=== PATIENT | male | born 1955 | race Caucasian/White ===

== ENCOUNTER 2018-06-14 20:21 | Inpatient (IN) | payer OTHER ==
[~2018-06-14] VITALS: Ht 172.7 cm; Wt 80.4 kg
--- NOTE | ~2018-06-14 | CON ---
[place], [place] REPORT OF CONSULTATION NAME: IRWIN BOYLE UNIT #: [id number] ROOM: 411 DOCTOR: PHD SHAISTA ESPINALHERINE BIRTHDATE: [birth year] DOS: 06/20/2018 HISTORY OF PRESENT ILLNESS: The patient is a 62-year-old male with a history of dementia, referred by the hospitalist due to recent change in mental status. He has been wandering lately and is currently nonverbal. He is presently on the 4th floor of [facility]. The patient is a poor historian. The patient is a poor historian. Per his medical records, he is a former smoker and does not use alcohol or illegal drugs. PAST MEDICAL HISTORY: Anxiety, asthma, Brennan esophagus, chronic back pain, COPD, dementia, gastritis, GERD, hiatal hernia, hyperlipidemia, IBS. MEDICATIONS: Potassium Cl/D5W, Namenda, Exelon, Remeron, Zocor, Eskalith, Risperdal, vitamin D, Singulair, Lovenox, Atrovent inhaler, Zofran, albuterol, Ritalin. The patient was awake and lying, in bed in no apparent distress. He made eye contact occasionally, but could not respond verbally to questions. He could not follow 1-step commands such as copying hand movements, following a pen with his eyes or blinking on command. DIAGNOSES: Unspecified neurocognitive disorder, unspecified delirium. PLAN: Continue to monitor to determine appropriateness for the [facility] once medically cleared. Thank you very much for this consult. Marian Espinal, PhD CM:CONSTR:REPORT OF CONSULTATION 1037 06/20/18 1811 interface
--- NOTE | ~2018-06-14 | EKG ---
[place], [place] ELECTROCARDIOGRAM REPORT NAME: IRWIN BOYLE UNIT #: [id number] ROOM: 411 DOCTOR: SONAM DRAFT REPORT BIRTHDATE: [birth year] [facility] Test Date: 2018-06-14 Test Time: 20:51:41 Pat Name: IRWIN BOYLE Department: Room: 411 Gender: M Supervisor Production Managing: Ruchi Ramirez : 1955 Requested By: DIANE CASTELLON Order Number: [id number] Reading MD: Lyubov Shaikh MD Measurements Intervals [place] Rate: 109 P: 84 IN: 156 QRS: -77 QRSD: 105 T: 71 QT: 366 QTc: 494 Interpretive Statements Sinus tachycardia Abnormal R-wave progression, late transition ST depression in V3-6 suggest ischemia Baseline wander in lead(s) V3 Electronically Signed On 06-17-2018 13:58:23 PDT by Lyubov Shaikh MD CM:EKGRPT:ELECTROCARDIOGRAM REPORT [id number] DIANE CHANDRA DRAFT REPORT DIANE CASTELLON DO
[~2018-06-14 20:21] MED LIST: 'XANAX1 MG PO; ALBUTEROL0.09 MG/A2 IH; ATARAX25 MG PO; BACTRIM DS 8001 TA1 PO; CLARITIN10 MG PO; COLACE100 MG PO; DIAZEPAM10 MG PO; FLOVENT 220 M220 MCG INH; HYDROCODONE BIT1 T11 PO; LIDEX0.05% T; LIPITOR40 MG PO; LITHONATE300 MG PO; NORCO 325 MG-51 TAB PO; PERCOCET 325 MG1 TA2 PO; PREDNISONE20 MG PO; PRILOSEC20 MG PO; PYRIDIUM200 MG PO; RISPERDAL1 MG PO; SIMVASTATIN40 MG PO; SINGULAIR10 MG PO; SPIRIVA 5 CAPS18 MCG INH; SPIRIVA18 MCG IH; TRAMADOL50 MG PO; ULTRAM50 MG PO; VALIUM10 MG PO; VENTOLIN0.09 MG/AC IH; XANAX1 MG PO; ZOLOFT100 MG PO
[2018-06-14 20:26] VITALS: BP 113/78
[2018-06-14 21:30] LABS: BASO # 0.1 10*3/uL (0.0-0.1); BASO % 0.5 % (0.0-1.0); HEMATOCRIT 45.4 % (42.0-52.0); HEMOGLOBIN 14.6 g/dl (14.0-18.0); LYMPH # 1.1 10*3/uL (1.3-4.4); LYMPH % 12.1 % (27.0-41.0); MEAN CORPUSCULAR HGB 30.9 pg (27.0-31.0); MEAN CORPUSCULAR HGB CONC 32.2 g/dl (33.0-37.0); MONO # 0.5 10*3/uL (0.1-1.0); MONO % 5.6 % (3.0-9.0); NEUT # 7.5 10*3/uL (2.3-7.9); NEUT % 81.5 % (47.0-73.0); PLATELET COUNT AUTOMATED 155 10*3/uL (130-400); RED BLOOD COUNT 4.73 10*6/uL (4.50-5.90); RED CELL DISTRI WIDTH 12.5 % (0-14.5); WHITE BLOOD COUNT 9.2 10*3/uL (4.8-10.8)
[2018-06-14 21:33] LABS: BILIRUBIN 2+ (NEGATIVE); BLOOD 2+ (NEGATIVE); CLARITY CLEAR (CLEAR); COLOR YELLOW (YELLOW); GLUCOSE NEGATIVE (NEGATIVE); KETONE 3+ (NEGATIVE); LEUKO ESTERASE NEGATIVE (NEGATIVE); NITRITE NEGATIVE (NEGATIVE); SPECIFIC GRAVITY >= 1.030 (1.005-1.030); UROBILINOGEN 0.2 E.U./dl (0.2-1.0)
[2018-06-14 21:43] LABS: BACTERIA 1+
[2018-06-14 21:48] LABS: ALBUMIN 4.4 gm/dl (3.1-4.5); ALKALINE PHOSPHATASE 87 U/L (45-117); BUN 15 mg/dl (7-24); CHLORIDE 112 mmol/L (98-107); CREATININE 1.55 mg/dL (0.70-1.30); POTASSIUM 4.2 mmol/L (3.5-5.1); SGOT/AST 27 IU/L (3-35); SGPT/ALT 21 U/L (12-78); SODIUM 142 mmol/L (136-145); TOTAL PROTEIN 8.5 gm/dL (6.4-8.2)
[2018-06-14 21:55] LABS: TROPONIN I < 0.015 ng/ml (<0.045)
[2018-06-14 23:06] VITALS: BP 123/65
[2018-06-15] VITALS: BP 132/90
[2018-06-15 02:15] LABS: ABG BASE EXCESS -15.5 mmol/L (-2.0-2.0); ABG HCO3 10.8 mmol/l (22-26); ABG O2 SATURATION 95.8 % (95-97); ARTERIAL BLOOD GAS PCO2 27.8 mmHg (35-45); ARTERIAL BLOOD GAS PH 7.217 (7.35-7.45); ARTERIAL BLOOD GAS PO2 81.2 mmHg (80-90)
[2018-06-15 06:09] LABS: BASO # 0.1 10*3/uL (0.0-0.1); BASO % 0.5 % (0.0-1.0); HEMATOCRIT 41.5 % (42.0-52.0); LYMPH # 1.1 10*3/uL (1.3-4.4); LYMPH % 12.1 % (27.0-41.0); MEAN CELL VOLUME 98.3 fl (80.0-94.0); MEAN CORPUSCULAR HGB 30.8 pg (27.0-31.0); MEAN CORPUSCULAR HGB CONC 31.3 g/dl (33.0-37.0); MONO # 0.6 10*3/uL (0.1-1.0); MONO % 6.2 % (3.0-9.0); NEUT # 7.4 10*3/uL (2.3-7.9); NEUT % 80.8 % (47.0-73.0); PLATELET COUNT AUTOMATED 131 10*3/uL (130-400); RED BLOOD COUNT 4.22 10*6/uL (4.50-5.90); RED CELL DISTRI WIDTH 12.6 % (0-14.5); WHITE BLOOD COUNT 9.1 10*3/uL (4.8-10.8)
[2018-06-15 06:26] LABS: CREATININE 1.55 mg/dL (0.70-1.30); PHOSPHOROUS 3.1 mg/dL (2.5-4.9); POTASSIUM 4.4 mmol/L (3.5-5.1)
[2018-06-15 07:24] LABS: VITAMIN D, 25-HYDROXY 11.1 ng/mL (30-100)
[2018-06-15 12:00] VITALS: BP 113/71
[2018-06-15 16:00] VITALS: BP 114/70
[2018-06-15 20:00] VITALS: BP 129/69
[2018-06-16] VITALS: BP 130/58
[2018-06-16 04:00] VITALS: BP 130/64
[2018-06-16 05:54] LABS: BASO # 0.1 10*3/uL (0.0-0.1); BASO % 0.7 % (0.0-1.0); EOS % 0.3 % (1.0-4.0); HEMATOCRIT 43.8 % (42.0-52.0); HEMOGLOBIN 13.5 g/dl (14.0-18.0); LYMPH % 13.6 % (27.0-41.0); MEAN CELL VOLUME 99.3 fl (80.0-94.0); MEAN CORPUSCULAR HGB 30.6 pg (27.0-31.0); MEAN CORPUSCULAR HGB CONC 30.8 g/dl (33.0-37.0); MEAN PLATELET VOLUME 11.8 fl (9.6-12.3); MONO # 0.4 10*3/uL (0.1-1.0); MONO % 5.1 % (3.0-9.0); NEUT % 79.8 % (47.0-73.0); PLATELET COUNT AUTOMATED 122 10*3/uL (130-400); RED BLOOD COUNT 4.41 10*6/uL (4.50-5.90); RED CELL DISTRI WIDTH 12.9 % (0-14.5); WHITE BLOOD COUNT 7.5 10*3/uL (4.8-10.8)
[2018-06-16 06:04] LABS: BUN 14 mg/dl (7-24); CHLORIDE 121 mmol/L (98-107); CREATININE 1.42 mg/dL (0.70-1.30); POTASSIUM 4.1 mmol/L (3.5-5.1); SODIUM 149 mmol/L (136-145)
[2018-06-16 12:00] VITALS: BP 134/82
[2018-06-16 16:00] VITALS: BP 110/56
[2018-06-16 20:00] VITALS: BP 113/82
[2018-06-17] VITALS: BP 148/20
[2018-06-17 07:15] LABS: BASO # 0.1 10*3/uL (0.0-0.1); BASO % 0.7 % (0.0-1.0); EOS % 0.2 % (1.0-4.0); HEMOGLOBIN 14.3 g/dl (14.0-18.0); LYMPH # 1.1 10*3/uL (1.3-4.4); LYMPH % 13.2 % (27.0-41.0); MEAN CORPUSCULAR HGB 31.8 pg (27.0-31.0); MEAN CORPUSCULAR HGB CONC 31.8 g/dl (33.0-37.0); MONO # 0.4 10*3/uL (0.1-1.0); MONO % 4.7 % (3.0-9.0); NEUT # 6.7 10*3/uL (2.3-7.9); NEUT % 79.9 % (47.0-73.0); PLATELET COUNT AUTOMATED 142 10*3/uL (130-400); RED CELL DISTRI WIDTH 13.4 % (0-14.5); WHITE BLOOD COUNT 8.4 10*3/uL (4.8-10.8)
[2018-06-17 07:29] VITALS: BP 134/78
[2018-06-17 07:30] LABS: ALBUMIN 3.8 gm/dl (3.1-4.5); BUN 14 mg/dl (7-24); POTASSIUM 4.8 mmol/L (3.5-5.1); SODIUM 155 mmol/L (136-145)
[2018-06-17 07:34] LABS: CREATININE 1.43 mg/dL (0.70-1.30); SGOT/AST 39 IU/L (3-35); SGPT/ALT 26 U/L (12-78); TOTAL PROTEIN 7.7 gm/dL (6.4-8.2)
[2018-06-17 07:39] LABS: CHLORIDE 129 mmol/L (98-107)
[2018-06-17 07:40] LABS: ALKALINE PHOSPHATASE 79 U/L (45-117)
[2018-06-17 12:00] VITALS: BP 141/74
[2018-06-17 16:00] VITALS: BP 123/74
[2018-06-17 18:20] LABS: BUN 15 mg/dl (7-24); CREATININE 1.38 mg/dL (0.70-1.30); POTASSIUM 3.7 mmol/L (3.5-5.1); SODIUM 153 mmol/L (136-145)
[2018-06-17 18:22] LABS: CHLORIDE 130 mmol/L (98-107)
[2018-06-17 20:00] VITALS: BP 143/90
[2018-06-18] VITALS: BP 136/110
[2018-06-18 06:30] VITALS: BP 99/54
[2018-06-18 07:03] LABS: BASO # 0.1 10*3/uL (0.0-0.1); BASO % 0.8 % (0.0-1.0); EOS # 0.3 10*3/uL (0.0-0.4); EOS % 3.8 % (1.0-4.0); HEMATOCRIT 43.4 % (42.0-52.0); HEMOGLOBIN 13.9 g/dl (14.0-18.0); LYMPH # 1.3 10*3/uL (1.3-4.4); LYMPH % 20.1 % (27.0-41.0); MEAN CORPUSCULAR HGB 30.8 pg (27.0-31.0); MEAN PLATELET VOLUME 11.5 fl (9.6-12.3); MONO # 0.4 10*3/uL (0.1-1.0); MONO % 5.9 % (3.0-9.0); NEUT # 4.6 10*3/uL (2.3-7.9); NEUT % 68.8 % (47.0-73.0); PLATELET COUNT AUTOMATED 129 10*3/uL (130-400); RED BLOOD COUNT 4.51 10*6/uL (4.50-5.90); RED CELL DISTRI WIDTH 13.4 % (0-14.5); WHITE BLOOD COUNT 6.7 10*3/uL (4.8-10.8)
[2018-06-18 07:07] LABS: MEAN CELL VOLUME 96.2 fl (80.0-94.0)
[2018-06-18 07:33] LABS: BUN 15 mg/dl (7-24); CHLORIDE 122 mmol/L (98-107); CREATININE 1.35 mg/dL (0.70-1.30); SODIUM 150 mmol/L (136-145)
[2018-06-18 08:00] VITALS: BP 128/76
[2018-06-18 12:00] VITALS: BP 122/78
[2018-06-18 16:00] VITALS: BP 124/85
[2018-06-18 20:00] VITALS: BP 120/82
[2018-06-19] VITALS: BP 125/86
[2018-06-19 07:12] LABS: ALBUMIN 3.7 gm/dl (3.1-4.5); ALKALINE PHOSPHATASE 89 U/L (45-117); BUN 12 mg/dl (7-24); CHLORIDE 115 mmol/L (98-107); CREATININE 1.09 mg/dL (0.70-1.30); POTASSIUM 3.2 mmol/L (3.5-5.1); SGOT/AST 21 IU/L (3-35); SGPT/ALT 27 U/L (12-78); SODIUM 146 mmol/L (136-145); TOTAL PROTEIN 7.4 gm/dL (6.4-8.2)
[2018-06-19 08:00] VITALS: BP 104/64
[2018-06-19 12:00] VITALS: BP 145/86
[2018-06-19 16:00] VITALS: BP 110/74
[2018-06-19 20:00] VITALS: BP 116/89
[2018-06-20] VITALS (7 sets, daily range): BP systolic 118–184; BP diastolic 61–90
[2018-06-20 07:09] LABS: BASO % 0.4 % (0.0-1.0); EOS # 0.2 10*3/uL (0.0-0.4); EOS % 3.1 % (1.0-4.0); HEMATOCRIT 44.4 % (42.0-52.0); HEMOGLOBIN 15.1 g/dl (14.0-18.0); LYMPH # 2.1 10*3/uL (1.3-4.4); MEAN CELL VOLUME 91.5 fl (80.0-94.0); MEAN CORPUSCULAR HGB 31.1 pg (27.0-31.0); MEAN PLATELET VOLUME 11.8 fl (9.6-12.3); MONO # 0.4 10*3/uL (0.1-1.0); MONO % 6.3 % (3.0-9.0); NEUT % 58.9 % (47.0-73.0); PLATELET COUNT AUTOMATED 124 10*3/uL (130-400); RED BLOOD COUNT 4.85 10*6/uL (4.50-5.90); RED CELL DISTRI WIDTH 12.5 % (0-14.5); WHITE BLOOD COUNT 6.8 10*3/uL (4.8-10.8)
[2018-06-20 07:20] LABS: BUN 8 mg/dl (7-24); CHLORIDE 115 mmol/L (98-107); CREATININE 0.67 mg/dL (0.70-1.30); POTASSIUM 3.4 mmol/L (3.5-5.1); SODIUM 146 mmol/L (136-145)
[2018-06-21] VITALS: BP 138/75
[2018-06-21 05:47] LABS: ALBUMIN 3.4 gm/dl (3.1-4.5); ALKALINE PHOSPHATASE 86 U/L (45-117); BUN 9 mg/dl (7-24); CHLORIDE 111 mmol/L (98-107); CREATININE 0.57 mg/dL (0.70-1.30); PHOSPHOROUS 1.7 mg/dL (2.5-4.9); POTASSIUM 3.7 mmol/L (3.5-5.1); SGOT/AST 27 IU/L (3-35); SGPT/ALT 24 U/L (12-78); SODIUM 144 mmol/L (136-145); TOTAL PROTEIN 6.8 gm/dL (6.4-8.2)
[2018-06-21 06:00] LABS: BASO # 0.1 10*3/uL (0.0-0.1); BASO % 0.6 % (0.0-1.0); EOS # 0.2 10*3/uL (0.0-0.4); EOS % 2.2 % (1.0-4.0); HEMATOCRIT 43.8 % (42.0-52.0); HEMOGLOBIN 14.2 g/dl (14.0-18.0); LYMPH % 22.9 % (27.0-41.0); MEAN CELL VOLUME 92.4 fl (80.0-94.0); MEAN CORPUSCULAR HGB CONC 32.4 g/dl (33.0-37.0); MEAN PLATELET VOLUME 11.8 fl (9.6-12.3); MONO # 0.7 10*3/uL (0.1-1.0); MONO % 7.5 % (3.0-9.0); NEUT # 5.9 10*3/uL (2.3-7.9); NEUT % 66.2 % (47.0-73.0); PLATELET COUNT AUTOMATED 116 10*3/uL (130-400); RED BLOOD COUNT 4.74 10*6/uL (4.50-5.90); RED CELL DISTRI WIDTH 12.3 % (0-14.5); WHITE BLOOD COUNT 8.9 10*3/uL (4.8-10.8)
[2018-06-21 08:00] VITALS: BP 132/82
[2018-06-21] MEDS ORDERED: EXELON13.3 MG/21 T (11:49)
[2018-06-21] MEDS ORDERED: MIRTAZAPINE15 M2 PO (11:49)
[2018-06-21 12:00] VITALS: BP 126/80
== END 2018-06-21 14:51 | disposition short-term general hospital (02) | DRG 682 ==
LOC: ED 20:21 → 4E 23:27 → EDHOLD 23:27 → 4E 23:43
PROVIDERS: Emergency Medicine; Internal Medicine; Internal Medicine Nephrology; Student in an Organized Health Care Education/Training Program
DX: N17.0 Acute kidney failure with tubular necrosis (principal); G93.41 Metabolic encephalopathy; F33.9 Major depressive disorder, recurrent, unspecified; E87.0 Hyperosmolality and hypernatremia; E86.0 Dehydration; K22.719 Barrett's esophagus with dysplasia, unspecified; K29.50 Unspecified chronic gastritis without bleeding; K58.9 Irritable bowel syndrome, unspecified; E87.8 Other disorders of electrolyte and fluid balance, not elsewhere classified; E83.41 Hypermagnesemia; G30.9 Alzheimer's disease, unspecified; F02.80 Dementia in other diseases classified elsewhere, unspecified severity, without behavioral disturbance, psychotic disturbance, mood disturbance, and anxiety; K44.9 Diaphragmatic hernia without obstruction or gangrene; K21.9 Gastro-esophageal reflux disease without esophagitis; R00.0 Tachycardia, unspecified; E78.5 Hyperlipidemia, unspecified; J44.9 Chronic obstructive pulmonary disease, unspecified; J45.40 Moderate persistent asthma, uncomplicated; F41.9 Anxiety disorder, unspecified; M54.9 Dorsalgia, unspecified; D72.810 Lymphocytopenia; R31.9 Hematuria, unspecified; E87.6 Hypokalemia; E83.39 Other disorders of phosphorus metabolism; R62.7 Adult failure to thrive; Z87.891 Personal history of nicotine dependence; Z90.49 Acquired absence of other specified parts of digestive tract; Z79.1 Long term (current) use of non-steroidal anti-inflammatories (NSAID); Z79.899 Other long term (current) drug therapy

== ENCOUNTER → 2024-01-17 | Outpatient (CLI) | payer OTHER ==
[~2024-01-17] MED LIST changes: +EXELON13.3 MG/21 T; +MIRTAZAPINE15 M2 PO
[2024-01-17 10:26] LABS: BUN 8 mg/dl (9-23); CHLORIDE 107 mmol/L (98-107); POTASSIUM 4.9 mmol/L (3.4-5.1)
== END | disposition home or self-care (01) ==
LOC: LAB 09:34
PROVIDERS: ATTEND Internal Medicine
DX: Z11.59 Encounter for screening for other viral diseases (principal); I44.4 Left anterior fascicular block; R00.1 Bradycardia, unspecified; R94.31 Abnormal electrocardiogram [ECG] [EKG]; J43.9 Emphysema, unspecified

== ENCOUNTER 2024-05-02 17:24 | Inpatient (IN) | payer OTHER ==
[~2024-05-02] VITALS: Ht 172.7 cm; Wt 91.0 kg
[2024-05-02 17:27] VITALS: BP 141/72
[2024-05-02] MEDS ORDERED: SERTRALINE HYD100 MG PO (17:35)
[2024-05-02] MEDS ORDERED: DIAZEPAM 5 MG TAB PO ONE (18:00)
[2024-05-02 18:17] LABS: BASO % 0.5 % (0.0-1.0); EOS # 0.1 10*3/uL (0.0-0.4); EOS % 0.9 % (1.0-4.0); HEMATOCRIT 40.9 % (42.0-52.0); LYMPH # 1.1 10*3/uL (1.3-4.4); LYMPH % 15.3 % (27.0-41.0); MEAN CELL VOLUME 95.1 fl (80.0-94.0); MEAN CORPUSCULAR HGB 31.4 pg (27.0-31.0); MEAN PLATELET VOLUME 11.8 fl (9.6-12.3); MONO # 0.5 10*3/uL (0.1-1.0); MONO % 6.3 % (3.0-9.0); NEUT # 5.7 10*3/uL (2.3-7.9); NEUT % 76.7 % (47.0-73.0); PLATELET COUNT AUTOMATED 141 10*3/uL (130-400); RED CELL DISTRI WIDTH 12.4 % (0-14.5); WHITE BLOOD COUNT 7.4 10*3/uL (4.8-10.8)
[2024-05-02 18:19] LABS: BILIRUBIN Negative (Negative); BLOOD Trace-Lysed (Negative); CLARITY Clear (Clear); COLOR Yellow (Yellow); GLUCOSE Negative (Negative); KETONE 2+ (Negative); LEUKO ESTERASE Trace (Negative); NITRITE Negative (Negative); SPECIFIC GRAVITY 1.025 (1.001-1.030)
[2024-05-02 18:26] LABS: URINE AMPHETAMINES Negative (1000ng/ml); URINE BARBITURATES Negative (200ng/ml); URINE BENZODIAZEPINES Positive (200ng/ml); URINE CANNABINOIDS (THC) Positive (50ng/ml); URINE COCAINE Negative (300ng/ml); URINE METHADONE Negative (300ng/ml); URINE OPIATES Negative (300ng/ml); URINE PHENCYCLIDINE Negative (25ng/ml)
[2024-05-02 18:35] LABS: EPITHELIAL CELLS 16-20
[2024-05-02 18:36] LABS: BACTERIA TRACE
[2024-05-02 18:59] LABS: ALKALINE PHOSPHATASE 68 U/L (46-116); BUN 11 mg/dl (9-23); CHLORIDE 108 mmol/L (98-107); POTASSIUM 3.6 mmol/L (3.4-5.1); SGPT/ALT 37 U/L (5-49); TOTAL PROTEIN 7.2 gm/dL (6.0-8.0)
[2024-05-02 19:02] LABS: ETHYL ALCOHOL < 3.0 mg/dl (<3)
[2024-05-02 19:37] VITALS: BP 134/84
[2024-05-02 22:23] VITALS: BP 132/78
[2024-05-03 03:10] VITALS: BP 128/88
[2024-05-03 03:11] VITALS: BP 128/88
[2024-05-03] MEDS ORDERED: ACETAMINOPHEN 325 MG TAB PO PRN (03:35)
[2024-05-03] MEDS ORDERED: Magnesium Hydroxide 30 ML UDC PO PRN (03:35)
[2024-05-03] MEDS ORDERED: LORazepam 2 MG/ML VIAL IM PRN (03:35)
[2024-05-03] MEDS ORDERED: MG-AL HYDROXIDE/SIMETICONE 30 ML UDC PO PRN (03:35)
[2024-05-03] MEDS ORDERED: Ziprasidone Mesylate 20 MG VIAL IM PRN (03:35)
[2024-05-03] MEDS ORDERED: LORazepam 1 MG TAB PO PRN (03:35)
[2024-05-03] MEDS ORDERED: Menthol/Zinc Oxide 4 GM THIN T PRN (03:40)
[2024-05-03 08:04] LABS: VITAMIN D, 25-HYDROXY 24.7 ng/mL (30-100)
[2024-05-03] MEDS ORDERED: NYSTATIN 15 GM BOT T SCH (09:00)
[2024-05-03] MEDS ORDERED: ALPRAZolam 0.5 MG TAB PO SCH (09:00)
[2024-05-03] MEDS ORDERED: RISPERIDONE 0.5 MG TAB PO SCH (09:00)
[2024-05-03] MEDS ORDERED: RIVASTIGMINE 13.3 MG/24 HR TDM T SCH (10:00)
[2024-05-03 14:00] VITALS: BP 128/88
[2024-05-03 20:00] VITALS: BP 92/73
[2024-05-03] MEDS ORDERED: LITHIUM CARBONATE 300 MG CAP PO SCH (21:00)
[2024-05-03] MEDS ORDERED: Mirtazapine 15 MG TAB PO SCH (22:00)
[2024-05-04 08:00] VITALS: BP 109/67
[2024-05-04] MEDS ORDERED: Vitamin D 1,000 IU TAB (25 MCG) PO SCH (09:00)
[2024-05-04] MEDS ORDERED: RISPERIDONE 0.5 MG TAB PO SCH (13:00)
[2024-05-04 19:09] VITALS: BP 123/67
[2024-05-05 12:59] VITALS: BP 112/96
[2024-05-05] MEDS ORDERED: Albuterol Sulf/Ipratropium 3 ML VIAL NEB SCH (13:41)
[2024-05-05] MEDS ORDERED: ALPRAZolam 0.25 MG TAB PO SCH (14:00)
[2024-05-05] MEDS ORDERED: AMOXICILLIN 500 MG CAP PO SCH (14:00)
[2024-05-05 20:00] VITALS: BP 113/69
[2024-05-05] MEDS ORDERED: BUDESONIDE 0.5 MG AMP NEB SCH (22:00)
[2024-05-06 05:06] LABS: HBSAG Negative (Negative); HEP B CORE AB, IGM Negative (Negative); HEPATITIS C ANTIBODY Non Reactive (Non Reactive)
[2024-05-06 07:46] VITALS: BP 105/66
[2024-05-06] MEDS ORDERED: LOPERAMIDE HYDROCHLORIDE PO PRN (10:00)
[2024-05-06 20:00] VITALS: BP 126/64
[2024-05-06] MEDS ORDERED: Memantine Hydrochloride 5 MG TAB PO SCH (21:00)
[2024-05-07 08:00] VITALS: BP 110/75
[2024-05-07] MEDS ORDERED: Memantine Hydrochloride 5 MG TAB PO SCH (09:00)
[2024-05-07] MEDS ORDERED: methylPREDNISolone 4 MG TAB PO SCH ×3 (12:55→15:30)
[2024-05-07] MEDS ORDERED: Doxycycline Hyclate 100 MG CAP PO SCH (12:56)
[2024-05-07 20:00] VITALS: BP 115/83
[2024-05-08 19:14] VITALS: BP 129/67
[2024-05-08] MEDS ORDERED: Memantine Hydrochloride 10 MG TAB PO SCH (21:00)
[2024-05-09] MEDS ORDERED: methylPREDNISolone 4 MG TAB PO SCH ×2 (07:30→22:00)
[2024-05-09 08:00] VITALS: BP 121/69
[2024-05-09 20:00] VITALS: BP 120/83
[2024-05-09] MEDS ORDERED: GUAIFENESIN 600 MG TAB ER PO SCH (21:00)
[2024-05-10 06:48] LABS: BASO % 0.5 % (0.0-1.0); EOS % 0.3 % (1.0-4.0); HEMATOCRIT 41.1 % (42.0-52.0); LYMPH # 1.3 10*3/uL (1.3-4.4); LYMPH % 14.3 % (27.0-41.0); MEAN CELL VOLUME 94.5 fl (80.0-94.0); MEAN CORPUSCULAR HGB 31.7 pg (27.0-31.0); MEAN CORPUSCULAR HGB CONC 33.6 g/dl (33.0-37.0); MEAN PLATELET VOLUME 12.2 fl (9.6-12.3); MONO # 0.5 10*3/uL (0.1-1.0); MONO % 5.3 % (3.0-9.0); NEUT % 79.3 % (47.0-73.0); PLATELET COUNT AUTOMATED 132 10*3/uL (130-400); RED BLOOD COUNT 4.35 10*6/uL (4.50-5.90); RED CELL DISTRI WIDTH 12.5 % (0-14.5); WHITE BLOOD COUNT 8.9 10*3/uL (4.8-10.8)
[2024-05-10 07:09] LABS: ALKALINE PHOSPHATASE 62 U/L (46-116); BUN 14 mg/dl (9-23); CHLORIDE 106 mmol/L (98-107); POTASSIUM 4.2 mmol/L (3.4-5.1); SGPT/ALT 25 U/L (5-49); TOTAL PROTEIN 6.7 gm/dL (6.0-8.0)
[2024-05-10 07:17] VITALS: BP 98/50
[2024-05-10] MEDS ORDERED: LORazepam 2 MG/ML VIAL IM PRN (10:25)
[2024-05-10] MEDS ORDERED: LORazepam 1 MG TAB PO PRN (10:25)
[2024-05-10 20:00] VITALS: BP 115/68
[2024-05-10] MEDS ORDERED: methylPREDNISolone 4 MG TAB PO SCH (22:00)
[2024-05-11] MEDS ORDERED: methylPREDNISolone 4 MG TAB PO SCH (07:30)
[2024-05-11 07:56] VITALS: BP 122/72
[2024-05-11 19:16] VITALS: BP 123/77
[2024-05-11] MEDS ORDERED: Mirtazapine 15 MG TAB PO SCH (22:00)
[2024-05-12] MEDS ORDERED: methylPREDNISolone 4 MG TAB PO SCH (07:30)
[2024-05-12 08:00] VITALS: BP 120/86
[2024-05-12] MEDS ORDERED: VIBRAMYCIN100 MG PO (09:25)
[2024-05-12] MEDS ORDERED: VENT7GM INH (09:25)
[2024-05-12] MEDS ORDERED: SYMB160 INH (09:26)
[2024-05-12 20:00] VITALS: BP 106/77
[2024-05-12] MEDS ORDERED: RAMELTEON 8 MG TAB PO SCH (21:00)
[2024-05-13 07:47] VITALS: BP 105/69
[2024-05-13] MEDS ORDERED: CIMETIDINE 200 MG TAB PO SCH (09:50)
[2024-05-13] MEDS ORDERED: FLUCONAZOLE 100 MG TAB PO SCH (11:00)
[2024-05-13 20:00] VITALS: BP 113/62
[2024-05-13] MEDS ORDERED: NYSTATIN 15 GM BOT T SCH (21:00)
[2024-05-14 08:00] VITALS: BP 102/55
[2024-05-14] MEDS ORDERED: CIMETIDINE 200 MG TAB PO SCH (09:00)
[2024-05-14 19:10] VITALS: BP 124/78
[2024-05-15 07:39] VITALS: BP 97/50
[2024-05-15 20:00] VITALS: BP 111/78
[2024-05-16 08:00] VITALS: BP 119/67
[2024-05-16] MEDS ORDERED: REMERON15 M2 PO (16:27)
[2024-05-16] MEDS ORDERED: ROZEREM8 MG PO (16:28)
[2024-05-16] MEDS ORDERED: TAGAMET HB200 M1 PO (16:28)
[2024-05-16] MEDS ORDERED: RISPERDAL0.5 MG PO (16:29)
[2024-05-16] MEDS ORDERED: NAMENDA-5 PO (16:30)
[2024-05-16] MEDS ORDERED: FLUCONAZOLE100 MG PO (16:34)
== END 2024-05-16 19:40 | DRG 753 ==
LOC: ED 17:24 → 3N 05-03 02:43
PROVIDERS: Emergency Medicine; Internal Medicine; ADMIT Psychiatry & Neurology Psychiatry; ATTEND Psychiatry & Neurology Psychiatry
PROC: GZHZZZZ Group Psychotherapy (ICD-10-PCS; principal; 2024-05-03)
PROC: GZ51ZZZ Individual Psychotherapy, Behavioral (ICD-10-PCS; 2024-05-03)
PROC: GZ56ZZZ Individual Psychotherapy, Supportive (ICD-10-PCS; 2024-05-03)
PROC: 0HBRXZZ Excision of Toe Nail, External Approach (ICD-10-PCS; 2024-05-03)
PROC: 0HBRXZZ Excision of Toe Nail, External Approach (ICD-10-PCS; 2024-05-03)
PROC: 0HBRXZZ Excision of Toe Nail, External Approach (ICD-10-PCS; 2024-05-03)
PROC: 0HBRXZZ Excision of Toe Nail, External Approach (ICD-10-PCS; 2024-05-03)
PROC: 0HBRXZZ Excision of Toe Nail, External Approach (ICD-10-PCS; 2024-05-03)
PROC: 0HBRXZZ Excision of Toe Nail, External Approach (ICD-10-PCS; 2024-05-03)
PROC: 0HBRXZZ Excision of Toe Nail, External Approach (ICD-10-PCS; 2024-05-03)
PROC: 0HBRXZZ Excision of Toe Nail, External Approach (ICD-10-PCS; 2024-05-03)
PROC: 0HBRXZZ Excision of Toe Nail, External Approach (ICD-10-PCS; 2024-05-03)
PROC: 0HBRXZZ Excision of Toe Nail, External Approach (ICD-10-PCS; 2024-05-03)
DX: F31.10 Bipolar disorder, current episode manic without psychotic features, unspecified (principal); J43.8 Other emphysema; J44.1 Chronic obstructive pulmonary disease with (acute) exacerbation; E55.9 Vitamin D deficiency, unspecified; F02.80 Dementia in other diseases classified elsewhere, unspecified severity, without behavioral disturbance, psychotic disturbance, mood disturbance, and anxiety; N39.0 Urinary tract infection, site not specified; B95.2 Enterococcus as the cause of diseases classified elsewhere; F41.9 Anxiety disorder, unspecified; E78.5 Hyperlipidemia, unspecified; B35.1 Tinea unguium; G30.1 Alzheimer's disease with late onset; Z87.891 Personal history of nicotine dependence; Z90.49 Acquired absence of other specified parts of digestive tract; Z99.3 Dependence on wheelchair